=== PATIENT | male | born 1975 | race Caucasian/White ===

== ENCOUNTER 2016-02-28 08:21 | Day surgery (SDC) | payer OTHER ==
[2016-02-28] MEDS ORDERED: fentaNYL 250 MCG/5 ML VIAL IVP ONE (09:09)
[2016-02-28] MEDS ORDERED: MIDAZOLAM 2 MG/2 ML VIAL IVP ONE (09:09)
[2016-02-28] MEDS ORDERED: diphenhydrAMINE INJ 50 MG/ML VIAL IVP ONE (09:09)
[2016-02-28] MEDS ORDERED: LACTATED RINGERS 1,000 ML IV ONE ×4 (09:16→14:59)
== END 2016-02-28 08:22 | disposition home or self-care (01) ==
PROC: 0DBE8ZX Excision of Large Intestine, Via Natural or Artificial Opening Endoscopic, Diagnostic (ICD-10-PCS; 2016-02-28)
PROC: 0DBN8ZZ Excision of Sigmoid Colon, Via Natural or Artificial Opening Endoscopic (ICD-10-PCS; 2016-02-28)
PROC: 0DBP8ZX Excision of Rectum, Via Natural or Artificial Opening Endoscopic, Diagnostic (ICD-10-PCS; principal; 2016-02-28 09:30)
DX: R19.4 Change in bowel habit (principal); R10.9 Unspecified abdominal pain; K52.9 Noninfective gastroenteritis and colitis, unspecified; Z80.0 Family history of malignant neoplasm of digestive organs
CPT/HCPCS: 45380; J3010; J7120

== ENCOUNTER 2021-05-14 08:00 | Outpatient (CLI) | payer OTHER | END 2021-05-14 23:59 | disposition home or self-care (01) | LOC: LAB.R 08:00 | PROVIDERS: ATTEND Emergency Medicine | DX: U07.1 COVID-19 (principal) ==